=== PATIENT | male | born 1945 | race Caucasian/White ===

== ENCOUNTER 2019-05-01 18:06 | IRF | payer MEDICARE, OTHER, SELFPAY ==
[2019-05-01 18:00] VITALS: PULSE 63; RESP 16; TEMP 36.7; O2SAT 97; BMI 34.5
--- NOTE | 2019-05-01 18:41 | ADMGEN ---
This patient, Jonathon Schaefer, was admitted to [facility] Room 221-01. Patient/family oriented to hospital policies and general routines including ID bracelet, bed and alarms, visiting hours, pain management, procedures, bathroom and other care routines, personal items, smoking policy, room service/diet, and visiting hours. Valuables list has been completed. Information on how to activate the Rapid Response Team has been discussed. Patient/Family are encouraged to report perceived risks to care and to ask questions if they do not understand what they are told or what they should do.
[2019-05-01 19:04] VITALS: PULSE 63; RESP 16; O2SAT 97
[2019-05-01 19:15] VITALS: BP 158/77
[2019-05-01] MEDS: metFORMIN HCL 500 MG TABLET 1000 MG PO (20:06)
[2019-05-01 20:09] LABS: Glucose Point of Care 202 (65-105)
[2019-05-01 21:23] VITALS: BP 100/60; PULSE 60; RESP 20; TEMP 36.8; O2SAT 97
[2019-05-02 05:03] LABS: Basophils Percent Auto 0.5 % (0.2-1.2); Eosinophils Absolute Auto 0.3 K/mm3 (0-0.3); Eosinophils Percent Auto 3.3 % (0-4.4); Hematocrit 35.6 % (42.0-52.0); Hemoglobin 10.9 g/dL (14.0-18.0); Immature Granulocyte Absolute 0.06 K/mm3 (0.00-0.031); Immature Granulocyte Percent A 0.7 % (0-0.5); Lymphocytes Absolute Auto 1.82 K/mm3 (0.9-3.2); Lymphocytes Percent Auto 22.5 % (18.3-44.2); Mean Corpuscular HGB Conc 30.6 g/dl (32-36); Mean Corpuscular Hemoglobin 25.9 pg (26-34); Mean Corpuscular Volume 84.6 fl (80-100); Mean Platelet Volume 10.8 fl (7.4-10.4); Monocytes Absolute Auto 0.8 K/mm3 (0.1-0.6); Monocytes Percent Auto 9.3 % (2.6-8.5); Neutrophils Absolute Auto 5.2 K/mm3 (1.3-6.7); Neutrophils Percent Auto 63.7 % (45.5-73.1); Platelet Count Result 189 k/mm3 (150-375); Red Blood Count 4.21 M/mm3 (4.6-6.20); White Blood Count 8.1 K/mm3 (4.5-10.0)
[2019-05-02 05:10] LABS: Hemoglobin A1C 8.9 % (<5.7)
[2019-05-02 05:11] LABS: Blood Urea Nitrogen 20 mg/dL (9-20); Calcium 8.4 mg/dL (8.4-10.2); Carbon Dioxide 26 mmol/L (22-30); Chloride 110 mmol/L (98-107); Cholesterol 141 mg/dL (0-200); Estimated CRCL calculation 74 ml/min; Estimated Glomerular Filt Rate > 60; Glucose 91 mg/dL (75-110); HDL Direct 36 mg/dL; Potassium 3.7 mmol/L (3.4-5.0); Sodium 139 mmol/L (137-145); Triglycerides 80 mg/dL (<150)
[2019-05-02 05:22] LABS: LDL Cholesterol Direct 88 mg/dL
[2019-05-02 06:52] LABS: Glucose Point of Care 87 (65-105)
[2019-05-02 07:02] VITALS: BP 165/58; PULSE 58; RESP 16; TEMP 36.8; O2SAT 93
[2019-05-02 08:23] VITALS: PULSE 60
[2019-05-02] MEDS: FINASTERIDE 5 MG TABLET PO (08:23)
[2019-05-02] MEDS: LOSARTAN POTASSIUM 50 MG TABLET PO (08:23)
[2019-05-02] MEDS: EZETIMIBE 10 MG TABLET PO (08:23)
[2019-05-02] MEDS: TAMSULOSIN HCL 0.4 MG CAPSULE PO (08:23)
[2019-05-02] MEDS: ASPIRIN 81 MG CHEWABLE TABLET PO (08:23)
[2019-05-02] MEDS: CLOPIDOGREL BISULFATE 75 MG TABLET PO (08:23)
[2019-05-02] MEDS: INDAPAMIDE 2.5 MG TABLET PO (08:23)
[2019-05-02] MEDS: METOPROLOL SUCCINATE EXT REL 50 MG TABCR PO (08:23)
[2019-05-02] MEDS: ATORVASTATIN 40 MG TABLET PO (08:23)
[2019-05-02] MEDS: metFORMIN HCL 500 MG TABLET 1000 MG PO ×2 (08:23→20:25)
--- NOTE | 2019-05-02 09:56 | PC.NURSE ---
pt refused lantus this morning. pt stated he usually takes it at HS as well as metformin. spoke with Dr Ernst and he was okay with changing the times of these medications. Also spoke with patient regarding jardiance. pt states he was not on that medication before and has none at home. spoke with Dr Ernst regarding jardiance as well with okay to discontinue at this time. will continue to monitor.
--- NOTE | 2019-05-02 10:00 | WPDREHABHP ---
H&P: HPI History of Present Illness Chief complaint: CVA Narrative: Jonathon Schaefer is a 74 year old male HISTORY OF PRESENT ILLNESS: The patient's primary rehab impairment category is stroke The etiologic diagnosis is left-sided hemiparesis I saw this patient [id number] on May 02, 2019 at 10:00 a.m. The patient is a 74-year-old right-handed white male with a past medical history significant for stroke about 15 years ago, aortic stenosis (is status post valve replacement close), ventricular tachycardia (status post dual-chamber ICD), diabetes mellitus, coronary artery disease, hypertension, and hyperlipidemia who presented to [facility] in [place] on April 29, 2019 with weakness and slurring of the speech. Patient reported walking to the bathroom when he felt weak and dropped to his knees and could not get up. His noticed slurring of the speech and was unable to help him up so he called EMS. EMS reported mild confusion and difficulty answering questions. Patient reported of some approximately 4 falls in the past week without acute injuries due to weakness and imbalance. He reported a mild posterior headache near his neck that is and achy and constant. Neurology was consulted. CT is negative for acute intracranial abnormalities. MRI could not be performed due to AICD. he was continued on aspirin Plavix and atorvastatin. Hospitalization significant for hypertensive urgency, leukocytosis (likely reactive ), acute kidney injury (baseline creatinine around 1), and hyperglycemia (controlled on insulin regiment ). Physical examination continues to reveal left-sided hemiparesis decreased gross motor control, impaired balance and decreased safety awareness. The patient has passed bedside swallowing test and will be on a regular consistency diet with thin liquids. Patient is discharged to rehab on Lovenox for DVT prophylaxis however considering the minimum deficit he may not need the Lovenox for long Therapy was initiated at the acute care facility and the patient transferred to us from [facility] on May 01, 2019 FALLS OR SURGERIES: The patient has had no major surgeries in the 100 days prior to admission. They had falls in the past year. They had falls with injury in the past year. PAST MEDICAL HISTORY: aortic valve stenosis, AV block, coronary artery disease, diabetes mellitus, essential hypertension, hyperlipidemia, tachycardia, pacemaker implantation PAST SURGICAL HISTORY: cataract extraction 2016, pacemaker placement November 07, 2014, aortic valve replacement October 06, 2017 with a Medtronic Mozic Number 25 millimeter valve SOCIAL HISTORY: patient lives with his in a 1 level home with the basement. His hobbies are trains and he has used to going to the basement. There are for concrete steps to enter the home. He was completely independent prior only uses single-point cane when there was no eye sore significant drained. He does laundry and dishes at baseline. He and his are both retired so his is available to assist following rehabilitation if needed. He is a former smoker no alcohol or drug use FAMILY HISTORY: mother with heart disease, hypertension, diabetes, cancer. Father with coronary artery bypass graft congestive heart failure brother with heart disease and congestive heart failure PRIOR LEVEL OF FUNCTION: Eating was INDEPENDENT Oral Care was INDEPENDENT Toileting Hygiene was INDEPENDENT Shower/Bathing was INDEPENDENT Upper Body Dressing was INDEPENDENT Lower Body Dressing was INDEPENDENT Donning/[place] Footwear was INDEPENDENT Rolling Left and Right was INDEPENDENT Sit to Lying was INDEPENDENT Lying to Sitting was INDEPENDENT Sit to Stand was INDEPENDENT Bed to Chair Transfers was INDEPENDENT Toilet Transfers was INDEPENDENT Walking was INDEPENDENT 990 and feet with NO DEVICE Wheelchair Mobility was NOT APPLICABLE PRIOR TO ADMISSION Stairs
[2019-05-02 13:14] VITALS: BMI 34.5
[2019-05-02 14:00] VITALS: BP 141/69; PULSE 72; RESP 18; TEMP 36.6; O2SAT 96
--- NOTE | 2019-05-02 16:37 | RPD ---
INDIVIDUALIZED PLAN OF CARE FOR Jonathon Schaefer Brief Synthesis of Pre-Admission Screen, Post-Admission Evaluation and Therapy Evaluations: The patient presents to rehab with a left cerebrovascular accident. Comorbidities include Hypertension, hyperlipidemia, uncontrolled diabetes mellitus, weakness, acute kidney injury, leukocytosis, normocytic anemia, aortic stenosis, coronary artery disease, hypertensive urgency. Deficits include:ADLs, Balance, Endurance, Family Training/Education, Mobility, ROM, Safety, Strength, and Transfers Insulation Inspector/Case Management for: Discharge Planning and Patient/Family Counseling Physical Therapy: 5 days per week for 90 minutes. Treatments may include: Therapeutic Exercise, Gait Training, Neuromuscular Re-education, Transfer Training, Community Reintegration, Bed Mobility, Patient/Family Education, Wheelchair Mobility Group Therapy/Concurrent Therapy Rationales: -Improve attention span during functional activities in a distracted environment. -Enhance problem solving and/or adequate judgment skills during functional activities in a distracted environment. -Promote increased safety awareness in a distracted environment to reduce fall risk with functional tasks, transfers, and ambulation to allow a more safe, self-sufficient return to the home environment. -Improve dynamic balance skills to promote safety and independence with functional activities in a distracted environment for maximum gain. Occupational Therapy: 5 days per week for 90 minutes. Treatments may include: Therapeutic Exercise, Therapeutic Activity, Cognitive Training, Self-Care Transfer Training, Community Reintegration, Home Management, Patient/Family Education, Wheelchair Mobility Training, Energy Conservation Training Group Therapy/Concurrent Therapy Rationales: -Allow therapist to observe and teach generalization and carry-over of skills learned in individual therapy. -Enhance problem solving and sequencing skills during therapeutic activities in a distracted environment. -Promote increased safety awareness in a realistic setting to reduce fall risk with functional tasks due to visual and verbal distractions. -Increase functional level with ADLs, ADL transfers and use of adaptive equipment through therapeutic activities with others while promoting safety to allow a more safe, self-sufficient return home. Medical Prognosis: Good Anticipated Length of Stay: 7 days Rehab Goals: Eating Goal: 06-Independent Oral Hygiene Goal: 06-Independent Toileting Hygiene Goal: 06-Independent Shower/Bathe Self Goal: 06-Independent Upper Body Dressing Goal: 06-Independent Lower Body Dressing Goal: 06-Independent Putting On/Taking Off Footwear Goal: 06-Independent Rolling Left and Right Goal: 06-Independent Sit to Lying Goal: 06-Independent Lying to Sitting on Side of Bed Goal: 06-Independent Sit to Stand Goal: 06-Independent Chair/Uob-mq-Asyze Transfer Goal: 06-Independent Toilet Transfer Goal: 06-Independent Car Transfer Goal: 06-Independent Walk 10' Goal: 06-Independent Walk 50' with Two Turns Goal: 06-Independent Walk 150' Goal: 06-Independent Walk 10' on Uneven Surface Goal: 06-Independent 1 Step (Curb) Goal: 06-Independent 4 Steps Goal: 06-Independent 12 Steps Goal Score: 06-Independent Picking Up Object Goal: 06-Independent Wheel 50' with Two Turns Score: 09-Not Applicable Wheel 150' Goal: 09-Not Applicable Anticipated discharge destination: Home
[2019-05-02 20:24] LABS: Glucose Point of Care 183 (65-105)
[2019-05-02] MEDS: INSULIN GLARGINE (*BKC) 100 UNITS/ML 70 UNITS SUB-Q (20:25)
[2019-05-02 22:00] VITALS: BP 153/71; PULSE 70; RESP 20; TEMP 37.1; O2SAT 97
[2019-05-03 06:00] VITALS: BP 161/78; PULSE 71; RESP 18; TEMP 36.6; O2SAT 91
[2019-05-03 07:10] LABS: Glucose Point of Care 76 (65-105)
[2019-05-03 08:33] VITALS: PULSE 71
[2019-05-03] MEDS: metFORMIN HCL 500 MG TABLET 1000 MG PO ×2 (08:33→21:26)
[2019-05-03] MEDS: TAMSULOSIN HCL 0.4 MG CAPSULE PO (08:33)
[2019-05-03] MEDS: CLOPIDOGREL BISULFATE 75 MG TABLET PO (08:33)
[2019-05-03] MEDS: ATORVASTATIN 40 MG TABLET PO (08:33)
[2019-05-03] MEDS: ASPIRIN 81 MG CHEWABLE TABLET PO (08:33)
[2019-05-03] MEDS: LOSARTAN POTASSIUM 50 MG TABLET PO (08:33)
[2019-05-03] MEDS: EZETIMIBE 10 MG TABLET PO (08:33)
[2019-05-03] MEDS: FINASTERIDE 5 MG TABLET PO (08:33)
[2019-05-03] MEDS: METOPROLOL SUCCINATE EXT REL 50 MG TABCR PO (08:33)
[2019-05-03] MEDS: INDAPAMIDE 2.5 MG TABLET PO (08:33)
--- NOTE | 2019-05-03 12:08 | WPDNEURORHBP ---
Subjective Date/time seen: 05/03/19 12:08 Interval history: this 74-year-old gentleman is here after having had stroke affecting the right cerebral hemisphere with the left-sided hemiparesis superimposed on a previous stroke several years ago he is doing very well denies any headache nausea vomiting chest pain shortness of breath the patient has multiple cardiac issues including aortic valve replacement and other medical problems mentioned in my HNP However overall is doing well except 1 complain of 1 urinary incontinence this morning when he was ready to go however the nurse aide was relatively slow in getting to him and he became incontinent he did have the urge did not have any presyncope incidence we will watch Review of Systems Review of Systems: All systems reviewed & are unremarkable except as noted in HPI and below Functional Status Ambulation Ability Ability to Ambulate 10 Feet: Contact Guard Ability to Ambulate 50 Feet With 2 Turns: Contact Guard Ability to Ambulate 150 Feet: Contact Guard Ambulation Assistive Devices: Cane and Cane, Large Base Quad Transfers Ability Ability to Transfer In/Out of Chair: Standby Assistance Exam Const: General: comfortable and no acute distress HENMT: General nose exam: Normal nares present Mouth: Yes moist mucous membranes Eyes: General: appearance normal, both eyes and all related structures Neck: Neck: supple and no JVD Resp: Effort & Inspection: normal respiratory effort Auscultation: clear to auscultation bilaterally Cardio: Rate: regular rate Rhythm: regular rhythm GI: GI Palp: Yes Soft to palpation Auscultation: normal bowel sounds Skin: General skin exam: normal color and no rashes or lesions noted Neuro: Other: patient is awake and alert of only to time place and person is speech language functions are normal cranial examination is normal left-sided hemiparesis is improving his overall doing quite well Extrem: General: normal to inspection Psych: Mental Status: mental status grossly normal Objective Data Vital Signs Vital Signs: Vital Signs - 24 hr 05/02/19 14:00 05/02/19 22:00 05/03/19 06:00 Temperature 36.6 C 37.1 C 36.6 C Pulse Rate 72 70 71 Respiratory Rate 18 20 18 Blood Pressure 141/69 H 153/71 H 161/78 H Pulse Oximetry 96 97 91 05/03/19 08:33 Temperature Pulse Rate 71 Respiratory Rate Blood Pressure Pulse Oximetry Intake/Output Intake/Output: Intake & Output 04/30/19 05/01/19 05/02/19 05/03/19 23:59 23:59 23:59 23:59 Intake Total 240 1320 240 Balance 240 1320 240 Meds/Results Medications: Active Medications Generic Name Dose Route Start Last Admin Trade Name Freq PRN Reason Stop Dose Admin Aspirin 81 mg 05/02/19 09:00 05/03/19 08:33 Aspirin Chewable PO 81 mg DAILY CHARU Administration Atorvastatin Calcium 40 mg 05/02/19 09:00 05/03/19 08:33 Lipitor PO 40 mg DAILY CHARU Administration Clopidogrel Bisulfate 75 mg 05/02/19 09:00 05/03/19 08:33 Plavix PO 75 mg DAILY CHARU Administration Dextrose 12.5 gm 05/01/19 18:47 Dextrose 50% Syringe IV PUSH PRN PRN Hypoglycemia Protocol Ezetimibe 10 mg 05/02/19 09:00 05/03/19 08:33 Zetia PO 10 mg DAILY CHARU Administration Finasteride 5 mg 05/02/19 09:00 05/03/19 08:33 Proscar PO 5 mg DAILY CHARU Administration Glucagon 1 mg 05/01/19 18:47 Glucagon For Inj IM PRN PRN Hypoglycemia Protocol Glucose 15 gm 05/01/19 18:47 Glutose 15 PO PRN PRN Hypoglycemia Protocol Dextrose 1,000 mls @ 100 mls/hr 05/01/19 18:47 Dextrose 5% 1,000 Ml IVPB PRN PRN Hypoglycemia Protocol Indapamide 2.5 mg 05/02/19 09:00 05/03/19 08:33 Lozol PO 2.5 mg DAILY CHARU Administration Insulin Glargine 70 units 05/02/19 21:00 05/02/19 20:25 Lantus SUB-Q 70 units HS CHARU Administration Losartan Potassium 50 mg 05/02/19 09:00 05/03/19 08:33 [place]
[2019-05-03 14:00] VITALS: BP 147/61; PULSE 65; RESP 18; TEMP 36.4; O2SAT 92
[2019-05-03 20:30] VITALS: PULSE 76; RESP 20; O2SAT 99
[2019-05-03] MEDS: INSULIN GLARGINE (*BKC) 100 UNITS/ML 70 UNITS SUB-Q (21:25)
[2019-05-03 22:00] VITALS: BP 158/64; PULSE 76; RESP 20; TEMP 36.2; O2SAT 99
[2019-05-03 22:25] LABS: Glucose Point of Care 314 (65-105)
[2019-05-04 06:00] VITALS: BP 146/70; PULSE 80; RESP 20; TEMP 36.4; O2SAT 99
[2019-05-04 06:31] LABS: Glucose Point of Care 129 (65-105)
[2019-05-04] MEDS: CLOPIDOGREL BISULFATE 75 MG TABLET PO (09:23)
[2019-05-04] MEDS: ATORVASTATIN 40 MG TABLET PO (09:23)
[2019-05-04] MEDS: EZETIMIBE 10 MG TABLET PO (09:23)
[2019-05-04] MEDS: FINASTERIDE 5 MG TABLET PO (09:23)
[2019-05-04 09:24] VITALS: PULSE 80
[2019-05-04] MEDS: metFORMIN HCL 500 MG TABLET 1000 MG PO ×2 (09:24→21:16)
[2019-05-04] MEDS: ASPIRIN 81 MG CHEWABLE TABLET PO (09:24)
[2019-05-04] MEDS: METOPROLOL SUCCINATE EXT REL 50 MG TABCR PO (09:24)
[2019-05-04] MEDS: LOSARTAN POTASSIUM 50 MG TABLET PO (09:24)
[2019-05-04] MEDS: INDAPAMIDE 2.5 MG TABLET PO (09:24)
[2019-05-04] MEDS: TAMSULOSIN HCL 0.4 MG CAPSULE PO (09:24)
[2019-05-04 14:00] VITALS: BP 147/70; PULSE 67; RESP 18; TEMP 36.4; O2SAT 92
--- NOTE | 2019-05-04 15:29 | WPDNEURORHBP ---
Subjective Date/time seen: 05/04/19 15:29 Interval history: this pleasant 74-year-old gentleman is here after having had a stroke affecting the left side of the body from which he is improving is quite happy with the care he is receiving and making progress every day denies any other neurological symptoms or any new neurological symptoms or signs denies any headache nausea vomiting chest pain shortness of breath fever chills or sore throat Review of Systems Review of Systems: All systems reviewed & are unremarkable except as noted in HPI and below Functional Status Ambulation Ability Ability to Ambulate 10 Feet: Contact Guard Ability to Ambulate 50 Feet With 2 Turns: Contact Guard Ability to Ambulate 150 Feet: Contact Guard Ambulation Assistive Devices: Cane Transfers Ability Ability to Transfer In/Out of Chair: Standby Assistance Exam Const: General: comfortable and no acute distress HENMT: General nose exam: Normal nares present Mouth: Yes moist mucous membranes Eyes: General: appearance normal, both eyes and all related structures Neck: Neck: supple and no JVD Resp: Effort & Inspection: normal respiratory effort Auscultation: clear to auscultation bilaterally Cardio: Rate: regular rate Rhythm: regular rhythm GI: GI Palp: Yes Soft to palpation Auscultation: normal bowel sounds Skin: General skin exam: normal color and no rashes or lesions noted Neuro: Other: patient is awake alert well oriented time place and person is speech language functions are normal cranial exam shows normal motor weakness on the left side is improving he is doing remarkably well and will probably be discharged soon Extrem: General: normal to inspection Psych: Mental Status: mental status grossly normal Objective Data Vital Signs Vital Signs: Vital Signs - 24 hr 05/03/19 20:30 05/03/19 22:00 05/04/19 06:00 Temperature 36.2 C L 36.4 C Pulse Rate 76 76 80 Respiratory Rate 20 20 20 Blood Pressure 158/64 H 146/70 H Pulse Oximetry 99 99 99 05/04/19 09:24 Temperature Pulse Rate 80 Respiratory Rate Blood Pressure Pulse Oximetry Intake/Output Intake/Output: Intake & Output 05/01/19 05/02/19 05/03/19 05/04/19 23:59 23:59 23:59 23:59 Intake Total 240 1320 720 720 Balance 240 1320 720 720 Meds/Results Medications: Active Medications Generic Name Dose Route Start Last Admin Trade Name Freq PRN Reason Stop Dose Admin Aspirin 81 mg 05/02/19 09:00 05/04/19 09:24 Aspirin Chewable PO 81 mg DAILY CHARU Administration Atorvastatin Calcium 40 mg 05/02/19 09:00 05/04/19 09:23 Lipitor PO 40 mg DAILY CHARU Administration Clopidogrel Bisulfate 75 mg 05/02/19 09:00 05/04/19 09:23 Plavix PO 75 mg DAILY CHARU Administration Dextrose 12.5 gm 05/01/19 18:47 Dextrose 50% Syringe IV PUSH PRN PRN Hypoglycemia Protocol Ezetimibe 10 mg 05/02/19 09:00 05/04/19 09:23 Zetia PO 10 mg DAILY CHARU Administration Finasteride 5 mg 05/02/19 09:00 05/04/19 09:23 Proscar PO 5 mg DAILY CHARU Administration Glucagon 1 mg 05/01/19 18:47 Glucagon For Inj IM PRN PRN Hypoglycemia Protocol Glucose 15 gm 05/01/19 18:47 Glutose 15 PO PRN PRN Hypoglycemia Protocol Dextrose 1,000 mls @ 100 mls/hr 05/01/19 18:47 Dextrose 5% 1,000 Ml IVPB PRN PRN Hypoglycemia Protocol Indapamide 2.5 mg 05/02/19 09:00 05/04/19 09:24 Lozol PO 2.5 mg DAILY CHARU Administration Insulin Glargine 70 units 05/02/19 21:00 05/03/19 21:25 Lantus SUB-Q 70 units HS CHARU Administration Losartan Potassium 50 mg 05/02/19 09:00 05/04/19 09:24 Cozaar PO 50 mg DAILY CHARU Administration Metformin HCl 1,000 mg 05/02/19 21:00 05/04/19 09:24 Glucophage PO 1,000 mg Q12HR CHARU Administration Metoprolol Succinate 50 mg 05/02/19 09:00 05/04/19 09:24 Toprol Xl PO 50 mg DAILY CHARU Administration
[2019-05-04 16:40] VITALS: PULSE 66; RESP 18; O2SAT 92
[2019-05-04] MEDS: INSULIN GLARGINE (*BKC) 100 UNITS/ML 70 UNITS SUB-Q (21:16)
[2019-05-04 21:24] LABS: Glucose Point of Care 239 (65-105)
[2019-05-04 22:00] VITALS: BP 152/79; PULSE 71; RESP 19; TEMP 36.5; O2SAT 98
[2019-05-05 06:00] VITALS: BP 187/79; PULSE 65; RESP 18; TEMP 36.2; O2SAT 97
[2019-05-05 06:57] LABS: Glucose Point of Care 113 (65-105)
[2019-05-05] MEDS: ASPIRIN 81 MG CHEWABLE TABLET PO (09:00)
[2019-05-05] MEDS: EZETIMIBE 10 MG TABLET PO (09:01)
[2019-05-05] MEDS: INDAPAMIDE 2.5 MG TABLET PO (09:01)
[2019-05-05] MEDS: ATORVASTATIN 40 MG TABLET PO (09:01)
[2019-05-05] MEDS: CLOPIDOGREL BISULFATE 75 MG TABLET PO (09:01)
[2019-05-05] MEDS: FINASTERIDE 5 MG TABLET PO (09:01)
[2019-05-05 09:02] VITALS: PULSE 65
[2019-05-05] MEDS: metFORMIN HCL 500 MG TABLET 1000 MG PO ×2 (09:02→20:27)
[2019-05-05] MEDS: METOPROLOL SUCCINATE EXT REL 50 MG TABCR PO (09:02)
[2019-05-05] MEDS: TAMSULOSIN HCL 0.4 MG CAPSULE PO (09:02)
[2019-05-05] MEDS: polyethylene glycoL 3350 17 GM POWD.PACK PO (09:02)
[2019-05-05] MEDS: LOSARTAN POTASSIUM 50 MG TABLET PO (09:02)
[2019-05-05 14:00] VITALS: BP 118/59; PULSE 70; RESP 20; TEMP 36.1; O2SAT 99
--- NOTE | 2019-05-05 15:39 | WPDNEURORHBP ---
Subjective Date/time seen: 05/05/19 15:39 Interval history: on this 74-year-old gentleman is here after having had a stroke which left him with left hemiparesis from which he has improving quite well denies any headache nausea vomiting chest pain shortness of breath fever chills or sore throat his very happy with the care and moving forward and planning to be discharged next week Review of Systems Review of Systems: All systems reviewed & are unremarkable except as noted in HPI and below Functional Status Ambulation Ability Ability to Ambulate 10 Feet: Standby Assistance Ability to Ambulate 50 Feet With 2 Turns: Standby Assistance Ability to Ambulate 150 Feet: Standby Assistance Ambulation Assistive Devices: Cane Transfers Ability Ability to Transfer In/Out of Chair: Standby Assistance Exam Const: General: comfortable and no acute distress HENMT: General nose exam: Normal nares present Mouth: Yes moist mucous membranes Eyes: General: appearance normal, both eyes and all related structures Neck: Neck: supple and no JVD Resp: Effort & Inspection: normal respiratory effort Auscultation: clear to auscultation bilaterally Cardio: Rate: regular rate Rhythm: regular rhythm GI: GI Palp: Yes Soft to palpation Auscultation: normal bowel sounds Skin: General skin exam: normal color and no rashes or lesions noted Neuro: Other: patient is awake and alert well oriented time present person has a normal speech and language functions normal cranial nerve examination except subtle left-sided facial weakness and mild left-sided hemiparesis with which he is improving quite a bit and is able to perform the activities of daily living much better than when he came in Extrem: General: normal to inspection Psych: Mental Status: mental status grossly normal Objective Data Vital Signs Vital Signs: Vital Signs - 24 hr 05/04/19 16:40 05/04/19 22:00 05/05/19 06:00 Temperature 36.5 C 36.2 C L Pulse Rate 66 71 65 Respiratory Rate 18 19 18 Blood Pressure 152/79 H 187/79 H Pulse Oximetry 92 98 97 05/05/19 09:02 05/05/19 14:00 Temperature 36.1 C L Pulse Rate 65 70 Respiratory Rate 20 Blood Pressure 118/59 L Pulse Oximetry 99 Intake/Output Intake/Output: Intake & Output 05/02/19 05/03/19 05/04/19 05/05/19 23:59 23:59 23:59 23:59 Intake Total 3793 335 2723 600 Balance 1189 413 8797 600 Meds/Results Medications: Active Medications Generic Name Dose Route Start Last Admin Trade Name Freq PRN Reason Stop Dose Admin Aspirin 81 mg 05/02/19 09:00 05/05/19 09:00 Aspirin Chewable PO 81 mg DAILY CHARU Administration Atorvastatin Calcium 40 mg 05/02/19 09:00 05/05/19 09:01 Lipitor PO 40 mg DAILY CHARU Administration Clopidogrel Bisulfate 75 mg 05/02/19 09:00 05/05/19 09:01 Plavix PO 75 mg DAILY CHARU Administration Dextrose 12.5 gm 05/01/19 18:47 Dextrose 50% Syringe IV PUSH PRN PRN Hypoglycemia Protocol Ezetimibe 10 mg 05/02/19 09:00 05/05/19 09:01 Zetia PO 10 mg DAILY CHARU Administration Finasteride 5 mg 05/02/19 09:00 05/05/19 09:01 Proscar PO 5 mg DAILY CHARU Administration Glucagon 1 mg 05/01/19 18:47 Glucagon For Inj IM PRN PRN Hypoglycemia Protocol Glucose 15 gm 05/01/19 18:47 Glutose 15 PO PRN PRN Hypoglycemia Protocol Dextrose 1,000 mls @ 100 mls/hr 05/01/19 18:47 Dextrose 5% 1,000 Ml IVPB PRN PRN Hypoglycemia Protocol Indapamide 2.5 mg 05/02/19 09:00 05/05/19 09:01 Lozol PO 2.5 mg DAILY CHARU Administration Insulin Glargine 70 units 05/02/19 21:00 05/04/19 21:16 Lantus SUB-Q 70 units HS CHARU Administration Losartan Potassium 50 mg 05/02/19 09:00 05/05/19 09:02 Cozaar PO 50 mg DAILY CHARU Administration Metformin HCl 1,000 mg 05/02/19 21:00 05/05/19 09:02 Glucophage PO 1,000 mg Q12HR CHARU Administration Metoprolol Suc
[2019-05-05 17:04] LABS: Glucose Point of Care 229 (65-105)
[2019-05-05] MEDS: INSULIN GLARGINE (*BKC) 100 UNITS/ML 70 UNITS SUB-Q (20:28)
[2019-05-05 20:58] LABS: Glucose Point of Care 207 (65-105)
[2019-05-05 21:16] VITALS: BP 180/74; PULSE 78; RESP 20; TEMP 36.4; O2SAT 97
[2019-05-06 06:00] VITALS: BP 170/83; PULSE 70; RESP 16; TEMP 36.2; O2SAT 94
[2019-05-06 07:02] LABS: Glucose Point of Care 89 (65-105)
[2019-05-06 10:25] VITALS: BP 110/65; PULSE 77
[2019-05-06] MEDS: ASPIRIN 81 MG CHEWABLE TABLET PO (10:26)
[2019-05-06] MEDS: FINASTERIDE 5 MG TABLET PO (10:26)
[2019-05-06] MEDS: ATORVASTATIN 40 MG TABLET PO (10:26)
[2019-05-06] MEDS: TAMSULOSIN HCL 0.4 MG CAPSULE PO (10:26)
[2019-05-06] MEDS: LOSARTAN POTASSIUM 50 MG TABLET PO (10:27)
[2019-05-06] MEDS: INDAPAMIDE 2.5 MG TABLET PO (10:27)
[2019-05-06] MEDS: EZETIMIBE 10 MG TABLET PO (10:27)
[2019-05-06] MEDS: metFORMIN HCL 500 MG TABLET 1000 MG PO ×2 (10:27→21:11)
[2019-05-06] MEDS: METOPROLOL SUCCINATE EXT REL 50 MG TABCR PO (10:28)
[2019-05-06] MEDS: CLOPIDOGREL BISULFATE 75 MG TABLET PO (10:28)
--- NOTE | 2019-05-06 11:23 | WPDNEURORHBP ---
Subjective Date/time seen: going well05/06/19 11:23 Review of Systems Review of Systems: All systems reviewed & are unremarkable except as noted in HPI and below Functional Status Ambulation Ability Ability to Ambulate 10 Feet: Standby Assistance Ability to Ambulate 50 Feet With 2 Turns: Standby Assistance Ability to Ambulate 150 Feet: Standby Assistance Ambulation Assistive Devices: Cane Transfers Ability Ability to Transfer In/Out of Chair: Standby Assistance Exam Const: General: cooperative, comfortable and no acute distress Nutritional Appearance: average body habitus Limitations: no limitations HENMT: Head: normocephalic Mouth: Yes Normal oral and palatal mucosa present Eyes: General: appearance normal, both eyes and all related structures Neck: Neck: full ROM and no lymphadenopathy Resp: Effort & Inspection: normal respiratory effort and able to speak in complete sentences Auscultation: clear to auscultation bilaterally Cardio: Rate: regular rate Rhythm: regular rhythm GI: Auscultation: normal bowel sounds Skin: General skin exam: no rashes or lesions noted Neuro: General: patient oriented x3 and moves all extremities Cranial nerves: Yes Equal, round and reactive pupils present, Yes Bilaterally intact EOM present, Yes Nystagmus not present, Yes facial symmetry (mild asymmetry) and Yes Midline tongue present Cognition (Neuro): normal cognition Speech: normal speech Motor exam (neuro): 5/5 motor strength present throughout (mild left linda) Deep tendon reflexes (DTR's): Right triceps reflex intensity grade: 0, Left triceps reflex intensity grade: 1+, Rt Biceps (C5, C6): 0, Left biceps reflex intensity grade: 1+, Right brachioradialis reflex intensity grade: 0, Left brachioradialis reflex intensity grade: 1+, Right patellar reflex intensity grade: 0, Left patellar reflex intensity grade: 1+, Right ankle reflex intensity grade: 0 and Left ankle reflex intensity grade: 1+ Plantar Reflex Responses: downgoing: right and upgoing (positive Babinski): left Psych: Appearance: grossly normal Objective Data Vital Signs Vital Signs: Vital Signs - 24 hr 05/05/19 14:00 05/05/19 21:16 05/06/19 06:00 Temperature 36.1 C L 36.4 C 36.2 C L Pulse Rate 70 78 70 Respiratory Rate 20 20 16 Blood Pressure 118/59 L 180/74 H 170/83 H Pulse Oximetry 99 97 94 05/06/19 10:25 Temperature Pulse Rate 77 Respiratory Rate Blood Pressure 110/65 Pulse Oximetry Intake/Output Intake/Output: Intake & Output 05/03/19 05/04/19 05/05/19 05/06/19 23:59 23:59 23:59 23:59 Intake Total 720 1200 1080 Balance 720 1200 1080 Meds/Results Medications: Active Medications Generic Name Dose Route Start Last Admin Trade Name Freq PRN Reason Stop Dose Admin Aspirin 81 mg 05/02/19 09:00 05/06/19 10:26 Aspirin Chewable PO 81 mg DAILY CHARU Administration Atorvastatin Calcium 40 mg 05/02/19 09:00 05/06/19 10:26 Lipitor PO 40 mg DAILY CHARU Administration Clopidogrel Bisulfate 75 mg 05/02/19 09:00 05/06/19 10:28 Plavix PO 75 mg DAILY CHARU Administration Dextrose 12.5 gm 05/01/19 18:47 Dextrose 50% Syringe IV PUSH PRN PRN Hypoglycemia Protocol Ezetimibe 10 mg 05/02/19 09:00 05/06/19 10:27 Zetia PO 10 mg DAILY CHARU Administration Finasteride 5 mg 05/02/19 09:00 05/06/19 10:26 Proscar PO 5 mg DAILY CHARU Administration Glucagon 1 mg 05/01/19 18:47 Glucagon For Inj IM PRN PRN Hypoglycemia Protocol Glucose 15 gm 05/01/19 18:47 Glutose 15 PO PRN PRN Hypoglycemia Protocol Dextrose 1,000 mls @ 100 mls/hr 05/01/19 18:47 Dextrose 5% 1,000 Ml IVPB PRN PRN Hypoglycemia Protocol Indapamide 2.5 mg 05/02/19 09:00 05/06/19 10:27 Lozol PO 2.5 mg DAILY CHARU Administration Insulin Glargine 70 units 05/02/19 21:00 05/05/19 20:28 Lantus SUB-Q 70 units HS CHARU Administration [place]
[2019-05-06 14:00] VITALS: BP 116/78; PULSE 76; RESP 18; TEMP 36.3; O2SAT 95
[2019-05-06 17:12] LABS: Glucose Point of Care 95 (65-105)
[2019-05-06] MEDS: INSULIN GLARGINE (*BKC) 100 UNITS/ML 70 UNITS SUB-Q (21:08)
[2019-05-06 21:24] LABS: Glucose Point of Care 183 (65-105)
[2019-05-06 22:00] VITALS: BP 169/71; PULSE 68; RESP 19; TEMP 36.2; O2SAT 99
[2019-05-07 06:00] VITALS: BP 183/81; PULSE 75; RESP 19; TEMP 36.2; O2SAT 96
[2019-05-07 06:53] LABS: Glucose Point of Care 72 (65-105)
[2019-05-07] MEDS: FINASTERIDE 5 MG TABLET PO (09:21)
[2019-05-07] MEDS: EZETIMIBE 10 MG TABLET PO (09:21)
[2019-05-07] MEDS: ATORVASTATIN 40 MG TABLET PO (09:21)
[2019-05-07] MEDS: INDAPAMIDE 2.5 MG TABLET PO (09:21)
[2019-05-07] MEDS: ASPIRIN 81 MG CHEWABLE TABLET PO (09:21)
[2019-05-07] MEDS: CLOPIDOGREL BISULFATE 75 MG TABLET PO (09:21)
[2019-05-07 09:22] VITALS: PULSE 75
[2019-05-07] MEDS: METOPROLOL SUCCINATE EXT REL 50 MG TABCR PO (09:22)
[2019-05-07] MEDS: polyethylene glycoL 3350 17 GM POWD.PACK PO (09:22)
[2019-05-07] MEDS: TAMSULOSIN HCL 0.4 MG CAPSULE PO (09:22)
[2019-05-07] MEDS: metFORMIN HCL 500 MG TABLET 1000 MG PO ×2 (09:22→20:26)
[2019-05-07] MEDS: LOSARTAN POTASSIUM 50 MG TABLET PO (09:22)
--- NOTE | 2019-05-07 10:36 | WPDNEURORHBP ---
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 from which he has continues to improve his quite happy with the care apart from some balance issues is doing fairly well denies any headache nausea vomiting chest pain shortness of breath he does have a neurologist in [facility] with whom he is going to follow up no diarrhea vomiting fever chills sore throat Functional Status Ambulation Ability Ability to Ambulate 10 Feet: Standby Assistance Ability to Ambulate 50 Feet With 2 Turns: Standby Assistance Ability to Ambulate 150 Feet: Standby Assistance Ambulation Assistive Devices: Cane Transfers Ability Ability to Transfer In/Out of Chair: Contact Guard Exam Const: General: comfortable and no acute distress HENMT: General nose exam: Normal nares present Mouth: Yes moist mucous membranes Eyes: General: appearance normal, both eyes and all related structures Neck: Neck: supple and no JVD Resp: Effort & Inspection: normal respiratory effort Auscultation: clear to auscultation bilaterally Cardio: Rate: regular rate Rhythm: regular rhythm GI: GI Palp: Yes Soft to palpation Auscultation: normal bowel sounds Skin: General skin exam: normal color and no rashes or lesions noted Neuro: Other: patient is awake alert willing to time place and person has normal speech and language function a subtle left facial weakness and mild left-sided hemiparesis from which he is recuperating quite well and doing very well in the rehab Extrem: General: normal to inspection Psych: Mental Status: mental status grossly normal Objective Data Vital Signs Vital Signs: Vital Signs - 24 hr 05/06/19 14:00 05/06/19 22:00 05/07/19 06:00 Temperature 36.3 C L 36.2 C L 36.2 C L Pulse Rate 76 68 75 Respiratory Rate 18 19 19 Blood Pressure 116/78 169/71 H 183/81 H Pulse Oximetry 95 99 96 05/07/19 09:22 Temperature Pulse Rate 75 Respiratory Rate Blood Pressure Pulse Oximetry Intake/Output Intake/Output: Intake & Output 05/04/19 05/05/19 05/06/19 05/07/19 23:59 23:59 23:59 23:59 Intake Total 1200 1080 480 240 Balance 1200 1080 480 240 Meds/Results Medications: Active Medications Generic Name Dose Route Start Last Admin Trade Name Freq PRN Reason Stop Dose Admin Aspirin 81 mg 05/02/19 09:00 05/07/19 09:21 Aspirin Chewable PO 81 mg DAILY [facility]U Administration Atorvastatin Calcium 40 mg 05/02/19 09:00 05/07/19 09:21 Lipitor PO 40 mg DAILY [facility] Administration Clopidogrel Bisulfate 75 mg 05/02/19 09:00 05/07/19 09:21 Plavix PO 75 mg DAILY [facility]U Administration Dextrose 12.5 gm 05/01/19 18:47 Dextrose 50% Syringe IV PUSH PRN PRN Hypoglycemia Protocol Ezetimibe 10 mg 05/02/19 09:00 05/07/19 09:21 Zetia PO 10 mg DAILY [facility]U Administration Finasteride 5 mg 05/02/19 09:00 05/07/19 09:21 Proscar PO 5 mg DAILY [facility] Administration Glucagon 1 mg 05/01/19 18:47 Glucagon For Inj IM PRN PRN Hypoglycemia Protocol Glucose 15 gm 05/01/19 18:47 Glutose 15 PO PRN PRN Hypoglycemia Protocol Dextrose 1,000 mls @ 100 mls/hr 05/01/19 18:47 Dextrose 5% 1,000 Ml IVPB PRN PRN Hypoglycemia Protocol Indapamide 2.5 mg 05/02/19 09:00 05/07/19 09:21 Lozol PO 2.5 mg DAILY [facility]U Administration Insulin Glargine 70 units 05/02/19 21:00 05/06/19 21:08 Lantus SUB-Q 70 units HS [facility]U Administration Losartan Potassium 50 mg 05/02/19 09:00 05/07/19 09:22 Cozaar PO 50 mg DAILY [facility] Administration Metformin HCl 1,000 mg 05/02/19 21:00 05/07/19 09:22 Glucophage PO 1,000 mg Q12HR [facility]U Administration Metoprolol Succinate 50 mg 05/02/19 09:00 05/07/19 09:22 Toprol Xl PO 50 mg DAILY [facility]U Administration Polyethylene Glycol 17 gm 05/05/19 09:00 05/07/19 09:22
[2019-05-07 14:00] VITALS: BP 107/52; PULSE 74; RESP 20; TEMP 36.6; O2SAT 98
[2019-05-07 19:27] LABS: Glucose Point of Care 296 (65-105)
[2019-05-07] MEDS: INSULIN GLARGINE (*BKC) 100 UNITS/ML 70 UNITS SUB-Q (20:26)
[2019-05-07 22:00] VITALS: BP 147/59; PULSE 71; RESP 18; TEMP 36.8; O2SAT 96
[2019-05-08 06:00] VITALS: BP 180/82; PULSE 76; RESP 19; TEMP 36.2; O2SAT 94
--- NOTE | 2019-05-08 06:18 | PC.NURSE ---
blood sugar 61-orange juice and akash crackers given although patient states that is not low for him
[2019-05-08 06:27] LABS: Glucose Point of Care 61 (65-105)
[2019-05-08] MEDS: INDAPAMIDE 2.5 MG TABLET PO (08:57)
[2019-05-08] MEDS: CLOPIDOGREL BISULFATE 75 MG TABLET PO (08:57)
[2019-05-08] MEDS: ATORVASTATIN 40 MG TABLET PO (08:57)
[2019-05-08] MEDS: FINASTERIDE 5 MG TABLET PO (08:57)
[2019-05-08] MEDS: ASPIRIN 81 MG CHEWABLE TABLET PO (08:57)
[2019-05-08] MEDS: EZETIMIBE 10 MG TABLET PO (08:57)
[2019-05-08 08:58] VITALS: PULSE 80
[2019-05-08] MEDS: metFORMIN HCL 500 MG TABLET 1000 MG PO ×2 (08:58→20:41)
[2019-05-08] MEDS: LOSARTAN POTASSIUM 50 MG TABLET PO (08:58)
[2019-05-08] MEDS: METOPROLOL SUCCINATE EXT REL 50 MG TABCR PO (08:58)
[2019-05-08] MEDS: polyethylene glycoL 3350 17 GM POWD.PACK PO (09:00)
[2019-05-08] MEDS: TAMSULOSIN HCL 0.4 MG CAPSULE PO (09:00)
--- NOTE | 2019-05-08 11:53 | WPDNEURORHBP ---
Subjective Date/time seen: 05/08/19 11:53 Interval history: this 74-year-old gentleman is here due to stroke which has affected his left side he is doing fairly well does not have any specific complaints particularly pertaining to his neurological system he is happy with the care denies any headache nausea vomiting chest pain shortness of breath fever chills or sore throat He did have some soreness and dry area and the right groin and we have put told left at for the same and is more comfortable Review of Systems Review of Systems: All systems reviewed & are unremarkable except as noted in HPI and below Functional Status Ambulation Ability Ability to Ambulate 10 Feet: Standby Assistance Ability to Ambulate 50 Feet With 2 Turns: Standby Assistance Ability to Ambulate 150 Feet: Standby Assistance Ambulation Assistive Devices: Cane Transfers Ability Ability to Transfer In/Out of Chair: Standby Assistance Exam Const: General: comfortable and no acute distress HENMT: General nose exam: Normal nares present Mouth: Yes moist mucous membranes Eyes: General: appearance normal, both eyes and all related structures Neck: Neck: no JVD Resp: Effort & Inspection: normal respiratory effort Auscultation: clear to auscultation bilaterally Cardio: Rate: regular rate Rhythm: regular rhythm GI: GI Palp: Yes Soft to palpation Auscultation: normal bowel sounds Skin: General skin exam: normal color and no rashes or lesions noted Other: possible fungal area in the right groin we are using anti fungal powder Neuro: Other: patient is awake alert well oriented time place and person has normal speech and language functions normal CT examination subtle left-sided hemiparesis still needing some assistance in the activities of daily living however significantly improved Extrem: General: normal to inspection Psych: Mental Status: mental status grossly normal Objective Data Vital Signs Vital Signs: Vital Signs - 24 hr 05/07/19 14:00 05/07/19 22:00 05/08/19 06:00 Temperature 36.6 C 36.8 C 36.2 C L Pulse Rate 74 71 76 Respiratory Rate 20 18 19 Blood Pressure 107/52 L 147/59 H 180/82 H Pulse Oximetry 98 96 94 05/08/19 08:58 Temperature Pulse Rate 80 Respiratory Rate Blood Pressure Pulse Oximetry Intake/Output Intake/Output: Intake & Output 03/22/20 03/23/20 03/24/20 03/25/20 23:59 23:59 23:59 23:59 Intake Total 1080 695 720 240 Balance 1080 285 720 240 Meds/Results Medications: Active Medications Generic Name Dose Route Start Last Admin Trade Name Freq PRN Reason Stop Dose Admin Aspirin 81 mg 05/02/19 09:00 05/08/19 08:57 Aspirin Chewable PO 81 mg DAILY CHARU Administration Atorvastatin Calcium 40 mg 05/02/19 09:00 05/08/19 08:57 Lipitor PO 40 mg DAILY [facility]U Administration Clopidogrel Bisulfate 75 mg 05/02/19 09:00 05/08/19 08:57 Plavix PO 75 mg DAILY [facility]U Administration Dextrose 12.5 gm 05/01/19 18:47 Dextrose 50% Syringe IV PUSH PRN PRN Hypoglycemia Protocol Ezetimibe 10 mg 05/02/19 09:00 05/08/19 08:57 Zetia PO 10 mg DAILY [facility]U Administration Finasteride 5 mg 05/02/19 09:00 05/08/19 08:57 Proscar PO 5 mg DAILY [facility]U Administration Glucagon 1 mg 05/01/19 18:47 Glucagon For Inj IM PRN PRN Hypoglycemia Protocol Glucose 15 gm 05/01/19 18:47 Glutose 15 PO PRN PRN Hypoglycemia Protocol Dextrose 1,000 mls @ 100 mls/hr 05/01/19 18:47 Dextrose 5% 1,000 Ml IVPB PRN PRN Hypoglycemia Protocol Indapamide 2.5 mg 05/02/19 09:00 05/08/19 08:57 Lozol PO 2.5 mg DAILY [facility]U Administration Insulin Glargine 70 units 05/02/19 21:00 05/07/19 20:26 Lantus SUB-Q 70 units HS CHARU Administration Losartan Potassium 50 mg 05/02/19 09:00 05/08/19 08:58 Cozaar PO 50 mg DAILY [facility]U Administration Metformin HCl 1,000 mg 05/02/19 21:00 05/08/19 08:58 G
[2019-05-08 14:00] VITALS: BP 105/49; PULSE 74; RESP 20; TEMP 36.7; O2SAT 96
[2019-05-08] MEDS: TOLNAFTATE 1% POWDER 45 GM BTL 1 APPLIC TOPICAL ×2 (17:28→20:42)
[2019-05-08 19:39] LABS: Glucose Point of Care 177 (65-105)
[2019-05-08] MEDS: INSULIN GLARGINE (*BKC) 100 UNITS/ML 70 UNITS SUB-Q (20:36)
[2019-05-08 20:57] LABS: Glucose Point of Care 171 (65-105)
[2019-05-08 21:39] VITALS: BP 140/64; PULSE 72; RESP 20; TEMP 36.6; O2SAT 99
[2019-05-09 04:47] LABS: Basophils Percent Auto 0.4 % (0.2-1.2); Eosinophils Absolute Auto 0.2 K/mm3 (0-0.3); Eosinophils Percent Auto 2.3 % (0-4.4); Hemoglobin 11.6 g/dL (14.0-18.0); Immature Granulocyte Absolute 0.06 K/mm3 (0.00-0.031); Immature Granulocyte Percent A 0.6 % (0-0.5); Lymphocytes Absolute Auto 1.86 K/mm3 (0.9-3.2); Lymphocytes Percent Auto 19.6 % (18.3-44.2); Mean Corpuscular HGB Conc 30.5 g/dl (32-36); Mean Corpuscular Hemoglobin 25.9 pg (26-34); Mean Corpuscular Volume 84.8 fl (80-100); Mean Platelet Volume 11.5 fl (7.4-10.4); Neutrophils Absolute Auto 6.4 K/mm3 (1.3-6.7); Neutrophils Percent Auto 67.1 % (45.5-73.1); Platelet Count Result 231 k/mm3 (150-375); Red Blood Count 4.48 M/mm3 (4.6-6.20); White Blood Count 9.5 K/mm3 (4.5-10.0)
[2019-05-09 05:01] LABS: Blood Urea Nitrogen 36 mg/dL (9-20); Calcium 8.5 mg/dL (8.4-10.2); Carbon Dioxide 28 mmol/L (22-30); Chloride 102 mmol/L (98-107); Estimated CRCL calculation 54 ml/min; Estimated Glomerular Filt Rate 49; Glucose 87 mg/dL (75-110); Potassium 3.7 mmol/L (3.4-5.0); Sodium 138 mmol/L (137-145)
[2019-05-09 06:00] VITALS: BP 157/70; PULSE 64; RESP 20; TEMP 36.6; O2SAT 96
[2019-05-09 07:13] LABS: Glucose Point of Care 59 (65-105)
[2019-05-09] MEDS: ATORVASTATIN 40 MG TABLET PO (09:31)
[2019-05-09] MEDS: EZETIMIBE 10 MG TABLET PO (09:31)
[2019-05-09] MEDS: FINASTERIDE 5 MG TABLET PO (09:31)
[2019-05-09] MEDS: ASPIRIN 81 MG CHEWABLE TABLET PO (09:31)
[2019-05-09] MEDS: CLOPIDOGREL BISULFATE 75 MG TABLET PO (09:31)
[2019-05-09 09:32] VITALS: PULSE 64
[2019-05-09] MEDS: LOSARTAN POTASSIUM 50 MG TABLET PO (09:32)
[2019-05-09] MEDS: metFORMIN HCL 500 MG TABLET 1000 MG PO ×2 (09:32→20:36)
[2019-05-09] MEDS: METOPROLOL SUCCINATE EXT REL 50 MG TABCR PO (09:32)
[2019-05-09] MEDS: INDAPAMIDE 2.5 MG TABLET PO (09:32)
[2019-05-09] MEDS: TAMSULOSIN HCL 0.4 MG CAPSULE PO (09:33)
[2019-05-09] MEDS: TOLNAFTATE 1% POWDER 45 GM BTL 1 APPLIC TOPICAL ×2 (09:33→20:37)
[2019-05-09] MEDS: polyethylene glycoL 3350 17 GM POWD.PACK PO (09:33)
--- NOTE | 2019-05-09 11:13 | WPDNEURORHBP ---
Subjective Date/time seen: 05/09/19 11:13 Interval history: this 74-year-old diabetic Emily is here after having had a stroke which has left him with left-sided hemiparesis from which he has significantly improved and looking forward to go home in the next couple of days however is sugars in the morning the relatively low and we need to adjust his Lantus at night otherwise he is asymptomatic without any sweating nausea vomiting headache chest pain shortness of breath fever chills or sore throat Review of Systems Review of Systems: All systems reviewed & are unremarkable except as noted in HPI and below Functional Status Ambulation Ability Ability to Ambulate 10 Feet: Independent Ability to Ambulate 50 Feet With 2 Turns: Independent Ability to Ambulate 150 Feet: Independent Ambulation Assistive Devices: Cane Transfers Ability Ability to Transfer In/Out of Chair: Independent Exam Const: General: comfortable and no acute distress HENMT: General nose exam: Normal nares present Mouth: Yes moist mucous membranes Eyes: General: appearance normal, both eyes and all related structures Neck: Neck: supple and no JVD Resp: Effort & Inspection: normal respiratory effort Auscultation: clear to auscultation bilaterally Cardio: Rate: regular rate Rhythm: regular rhythm GI: GI Palp: Yes Soft to palpation Auscultation: normal bowel sounds Skin: General skin exam: normal color and no rashes or lesions noted Neuro: Other: patient is awake alert will oriented times place per son has normal speech and language functions normal cranial nerve examination and significantly improved left-sided hemiparesis engage in therapy quite well and happy with the care Extrem: General: normal to inspection Psych: Mental Status: mental status grossly normal Objective Data Vital Signs Vital Signs: Vital Signs - 24 hr 05/08/19 14:00 05/08/19 21:39 05/09/19 06:00 Temperature 36.7 C 36.6 C 36.6 C Pulse Rate 74 72 64 Respiratory Rate 20 20 20 Blood Pressure 105/49 L 140/64 157/70 H Pulse Oximetry 96 99 96 05/09/19 09:32 Temperature Pulse Rate 64 Respiratory Rate Blood Pressure Pulse Oximetry Intake/Output Intake/Output: Intake & Output 05/06/19 05/07/19 05/08/19 05/09/19 23:59 23:59 23:59 23:59 Intake Total 480 720 840 240 Balance 480 720 840 240 Meds/Results Medications: Active Medications Generic Name Dose Route Start Last Admin Trade Name Freq PRN Reason Stop Dose Admin Aspirin 81 mg 05/02/19 09:00 05/09/19 09:31 Aspirin Chewable PO 81 mg DAILY CHARU Administration Atorvastatin Calcium 40 mg 05/02/19 09:00 05/09/19 09:31 Lipitor PO 40 mg DAILY CHARU Administration Clopidogrel Bisulfate 75 mg 05/02/19 09:00 05/09/19 09:31 Plavix PO 75 mg DAILY [facility]U Administration Dextrose 12.5 gm 05/01/19 18:47 Dextrose 50% Syringe IV PUSH PRN PRN Hypoglycemia Protocol Ezetimibe 10 mg 05/02/19 09:00 05/09/19 09:31 Zetia PO 10 mg DAILY [facility] Administration Finasteride 5 mg 05/02/19 09:00 05/09/19 09:31 Proscar PO 5 mg DAILY CHARU Administration Glucagon 1 mg 05/01/19 18:47 Glucagon For Inj IM PRN PRN Hypoglycemia Protocol Glucose 15 gm 05/01/19 18:47 Glutose 15 PO PRN PRN Hypoglycemia Protocol Dextrose 1,000 mls @ 100 mls/hr 05/01/19 18:47 Dextrose 5% 1,000 Ml IVPB PRN PRN Hypoglycemia Protocol Indapamide 2.5 mg 05/02/19 09:00 05/09/19 09:32 Lozol PO 2.5 mg DAILY [facility] Administration Insulin Glargine 60 units 05/09/19 21:00 Lantus SUB-Q HS [facility] Losartan Potassium 50 mg 05/02/19 09:00 05/09/19 09:32 Cozaar PO 50 mg DAILY [facility] Administration Metformin HCl 1,000 mg 05/02/19 21:00 05/09/19 09:32 Glucophage PO 1,000 mg Q12HR [facility] Administration Metoprolol Succinate 50 mg 05/02/19 09:00 05/09/19 09:32 Toprol Xl PO 50 mg DAILY [facility] A
[2019-05-09 11:59] LABS: Glucose Point of Care 104 (65-105)
--- NOTE | 2019-05-09 12:09 | PCNFU ---
Nutrition Follow-Up Complete: Decreased saturated fat/cholesterol needs related to cardiovascular disease as evidenced by CVA, hx HTN and high cholesterol. Patient to consume 75% of meals or greater. Goal: Goal met, continue with same goal. Pt current nutrition DBCC. Nutrition recommendation: Continue with current recommendations. Last recorded weight is 115.5 kg. Bowel Motility: Labs Reviewed:BUN 36, BG 177 to 59. Meds Noted:lantus, glucophage, miralax Additional Notes: Pt with adequate intake, eating 100% of all meals. Pt experienced low BG of 59. MD adjusting lantus, will d/c home in a few days. Follow up in 7 days.
[2019-05-09 13:57] LABS: Glucose Point of Care 148 (65-105)
[2019-05-09 14:00] VITALS: BP 120/56; PULSE 69; RESP 18; TEMP 36.7; O2SAT 98
[2019-05-09] MEDS: INSULIN GLARGINE (*BKC) 100 UNITS/ML 60 UNITS SUB-Q (20:36)
[2019-05-09 20:47] LABS: Glucose Point of Care 203 (65-105)
[2019-05-09 22:00] VITALS: BP 139/60; PULSE 72; RESP 18; TEMP 36.7; O2SAT 92
[2019-05-10 05:44] VITALS: BP 146/57; PULSE 67; RESP 20; TEMP 37.1; O2SAT 97
[2019-05-10 06:45] LABS: Glucose Point of Care 46 (65-105)
[2019-05-10] MEDS: FINASTERIDE 5 MG TABLET PO (08:56)
[2019-05-10] MEDS: LOSARTAN POTASSIUM 50 MG TABLET PO (08:56)
[2019-05-10] MEDS: EZETIMIBE 10 MG TABLET PO (08:56)
[2019-05-10] MEDS: ATORVASTATIN 40 MG TABLET PO (08:56)
[2019-05-10] MEDS: CLOPIDOGREL BISULFATE 75 MG TABLET PO (08:56)
[2019-05-10] MEDS: INDAPAMIDE 2.5 MG TABLET PO (08:56)
[2019-05-10] MEDS: ASPIRIN 81 MG CHEWABLE TABLET PO (08:56)
[2019-05-10 08:57] VITALS: PULSE 67
[2019-05-10] MEDS: METOPROLOL SUCCINATE EXT REL 50 MG TABCR PO (08:57)
[2019-05-10] MEDS: metFORMIN HCL 500 MG TABLET 1000 MG PO ×2 (08:57→20:15)
[2019-05-10] MEDS: TAMSULOSIN HCL 0.4 MG CAPSULE PO (08:57)
[2019-05-10] MEDS: polyethylene glycoL 3350 17 GM POWD.PACK PO (08:57)
[2019-05-10 12:00] LABS: Glucose Point of Care 117 (65-105)
--- NOTE | 2019-05-10 13:32 | WPDNEURORHBP ---
Subjective Date/time seen: 05/10/19 13:32 Interval history: This 74-year-old diabetic gentleman has recuperate it here after having and stroke with left hemiparesis has done remarkably well and will be going home tomorrow he denies any headache nausea vomiting chest pain shortness of breath fever chills or sore throat Review of Systems Review of Systems: All systems reviewed & are unremarkable except as noted in HPI and below Functional Status Ambulation Ability Ability to Ambulate 10 Feet: Independent Ability to Ambulate 50 Feet With 2 Turns: Independent Ability to Ambulate 150 Feet: Independent Ambulation Assistive Devices: Cane Transfers Ability Ability to Transfer In/Out of Chair: Independent Exam Const: General: comfortable and no acute distress HENMT: General nose exam: Normal nares present Mouth: Yes moist mucous membranes Eyes: General: appearance normal, both eyes and all related structures Neck: Neck: supple and no JVD Resp: Effort & Inspection: normal respiratory effort Auscultation: clear to auscultation bilaterally Cardio: Rate: regular rate Rhythm: regular rhythm GI: GI Palp: Yes Soft to palpation Auscultation: normal bowel sounds Skin: General skin exam: normal color and no rashes or lesions noted Neuro: Other: patient is awake alert of L1 to time place person is speech and language functions are normal cranial examination is normal left-sided hemiparesis has significantly improved and is ready to be discharged tomorrow Extrem: General: normal to inspection Psych: Mental Status: mental status grossly normal Objective Data Vital Signs Vital Signs: Vital Signs - 24 hr 05/09/19 14:00 05/09/19 22:00 05/10/19 05:44 Temperature 36.7 C 36.7 C 37.1 C Pulse Rate 69 72 67 Respiratory Rate 18 18 20 Blood Pressure 120/56 L 139/60 146/57 H Pulse Oximetry 98 92 97 05/10/19 08:57 Temperature Pulse Rate 67 Respiratory Rate Blood Pressure Pulse Oximetry Intake/Output Intake/Output: Intake & Output 05/07/19 05/08/19 05/09/19 05/10/19 23:59 23:59 23:59 23:59 Intake Total 720 840 720 480 Balance 720 840 720 480 Meds/Results Medications: Active Medications Generic Name Dose Route Start Last Admin Trade Name Freq PRN Reason Stop Dose Admin Aspirin 81 mg 05/02/19 09:00 05/10/19 08:56 Aspirin Chewable PO 81 mg DAILY [facility]U Administration Atorvastatin Calcium 40 mg 05/02/19 09:00 05/10/19 08:56 Lipitor PO 40 mg DAILY [facility] Administration Clopidogrel Bisulfate 75 mg 05/02/19 09:00 05/10/19 08:56 Plavix PO 75 mg DAILY [facility] Administration Dextrose 12.5 gm 05/01/19 18:47 Dextrose 50% Syringe IV PUSH PRN PRN Hypoglycemia Protocol Ezetimibe 10 mg 05/02/19 09:00 05/10/19 08:56 Zetia PO 10 mg DAILY [facility] Administration Finasteride 5 mg 05/02/19 09:00 05/10/19 08:56 Proscar PO 5 mg DAILY [facility] Administration Glucagon 1 mg 05/01/19 18:47 Glucagon For Inj IM PRN PRN Hypoglycemia Protocol Glucose 15 gm 05/01/19 18:47 Glutose 15 PO PRN PRN Hypoglycemia Protocol Dextrose 1,000 mls @ 100 mls/hr 05/01/19 18:47 Dextrose 5% 1,000 Ml IVPB PRN PRN Hypoglycemia Protocol Indapamide 2.5 mg 05/02/19 09:00 05/10/19 08:56 Lozol PO 2.5 mg DAILY [facility] Administration Insulin Glargine 60 units 05/09/19 21:00 05/09/19 20:36 Lantus SUB-Q 60 units HS [facility]U Administration Losartan Potassium 50 mg 05/02/19 09:00 05/10/19 08:56 Cozaar PO 50 mg DAILY [facility] Administration Metformin HCl 1,000 mg 05/02/19 21:00 05/10/19 08:57 Glucophage PO 1,000 mg Q12HR [facility] Administration Metoprolol Succinate 50 mg 05/02/19 09:00 05/10/19 08:57 Toprol Xl PO 50 mg DAILY [facility]U Administration Polyethylene Glycol 17 gm 05/05/19 09:00 05/10/19 08:57 Miralax PO 17 gm QAM [facility]U Administration Tamsulosin HCl 0.4 mg 05/02/19 09:00 0
[2019-05-10] MEDS: TOLNAFTATE 1% POWDER 45 GM BTL 1 APPLIC TOPICAL ×2 (13:34→20:15)
[2019-05-10 14:00] VITALS: BP 148/62; PULSE 72; RESP 18; TEMP 36.2; O2SAT 96
[2019-05-10] MEDS: INSULIN GLARGINE (*BKC) 100 UNITS/ML 60 UNITS SUB-Q (20:15)
[2019-05-10 20:24] LABS: Glucose Point of Care 243 (65-105)
[2019-05-10 21:18] VITALS: PULSE 72; RESP 18; O2SAT 96
[2019-05-10 22:00] VITALS: BP 134/78; PULSE 66; RESP 18; TEMP 36.6; O2SAT 100
[2019-05-11 06:00] VITALS: BP 123/58; PULSE 77; RESP 18; TEMP 36.4; O2SAT 97
[2019-05-11 07:00] LABS: Glucose Point of Care 94 (65-105)
[2019-05-11 07:00] LABS: Glucose Point of Care 49 (65-105)
[2019-05-11] MEDS: ASPIRIN 81 MG CHEWABLE TABLET PO (08:27)
[2019-05-11] MEDS: ATORVASTATIN 40 MG TABLET PO (08:27)
[2019-05-11] MEDS: CLOPIDOGREL BISULFATE 75 MG TABLET PO (08:27)
[2019-05-11 08:28] VITALS: PULSE 77
[2019-05-11] MEDS: metFORMIN HCL 500 MG TABLET 1000 MG PO (08:28)
[2019-05-11] MEDS: METOPROLOL SUCCINATE EXT REL 50 MG TABCR PO (08:28)
[2019-05-11] MEDS: EZETIMIBE 10 MG TABLET PO (08:28)
[2019-05-11] MEDS: INDAPAMIDE 2.5 MG TABLET PO (08:28)
[2019-05-11] MEDS: LOSARTAN POTASSIUM 50 MG TABLET PO (08:28)
[2019-05-11] MEDS: FINASTERIDE 5 MG TABLET PO (08:28)
[2019-05-11] MEDS: polyethylene glycoL 3350 17 GM POWD.PACK PO (08:29)
[2019-05-11] MEDS: TAMSULOSIN HCL 0.4 MG CAPSULE PO (08:29)
[2019-05-11] MEDS: TOLNAFTATE 1% POWDER 45 GM BTL 1 APPLIC TOPICAL (08:29)
--- NOTE | 2019-05-16 11:10 | PM.DS ---
DS: Diagnosis Admitting Diagnosis Admitting Diagnosis: Cerebral infarction due to unspecified occlusion or stenosis of unspecified cerebral artery Discharge Diagnosis (1) Cerebral arteriosclerosis with history of previous stroke: Code(s): I67.2 - Cerebral atherosclerosis; Z86.73 - Personal history of transient ischemic attack (TIA), and cerebral infarction without residual deficits Status: Acute (2) Hyperlipidemia: Code(s): E78.5 - Hyperlipidemia, unspecified Status: Acute (3) Hypertension: Code(s): I10 - Essential (primary) hypertension Status: Acute (4) H/O aortic valve replacement: Code(s): Z95.2 - Presence of prosthetic heart valve Status: Acute (5) Aortic stenosis: Code(s): I35.0 - Nonrheumatic aortic (valve) stenosis Status: Acute (6) Pacemaker: Code(s): Z95.0 - Presence of cardiac pacemaker Status: Acute (7) Coronary artery disease: Code(s): I25.10 - Atherosclerotic heart disease of [place] coronary artery without angina pectoris Status: Acute (8) Diabetes mellitus with neuropathy: Code(s): E11.40 - Type 2 diabetes mellitus with diabetic neuropathy, unspecified Status: Acute (9) Left hemiparesis: Code(s): G81.94 - Hemiplegia, unspecified affecting left nondominant side Status: Acute (10) Stroke: Code(s): I63.9 - Cerebral infarction, unspecified Status: Acute DS: Summary Hospital Course Reason for hospitalization: this 74-year-old right-handed white male was admitted with the rehab diagnosis of left-sided hemiparesis secondary to the right hemispheric stroke as detailed in my history and physical examination he does have a previous history of having a stroke many years ago and has multiple comorbidities mentioned as in the brief problem list above the patient received the physical therapy of compression therapy and gait training and the treatment for the underlying medical issues and was discharge in the much better condition Hospital Course: the patient was able to achieved the following independent measures Eating independent overlie Charito setup toileting setup bathing independent upper body dressing set up lower body dressing set up foot where a set up rolling in bed independent sitting to lying independent lying to sitting and the plan and sit to stand independent chair transfers independent 12 a transverse independent car transfers independent walking 10 feet independent walking 50 feet with 2 turns independent walking 150 feet independent walking 10 feet uneven surfaces independent [place] step independent 4 steps independent 12 step set up 12 steps independent making about object independent wheelchair 50 feet not applicable wheelchair and 50 feet not ability girl patient was sent home with home health no falls were recorded Time Spent with Patient Time attestation: Total time spent providing and/or coordinating discharge services: Exam Const: General: comfortable and no acute distress HENMT: General nose exam: Normal nares present Mouth: Yes moist mucous membranes Eyes: General: appearance normal, both eyes and all related structures Neck: Neck: supple and no JVD Resp: Effort & Inspection: normal respiratory effort Auscultation: clear to auscultation bilaterally Cardio: Other: cardiac murmurs remained stable GI: GI Palp: Yes Soft to palpation Auscultation: normal bowel sounds Skin: General skin exam: normal color and no rashes or lesions noted Neuro: Other: patient was awake and alert well oriented in time place and person with much improved left-sided hemiparesis and happy with the care he received Extrem: General: normal to inspection Psych: Mental Status: mental status grossly normal DS: Data Data Completed and Pending Completed studies during hospitalization: the lab work performed on May 02 August 05, 2019 prior to discharge showed white count of 9500 hemoglobin of 11.6
== END 2019-05-11 11:00 | disposition home health service (06) | DRG 57 ==
PROVIDERS: Admitting Provider Psychiatry & Neurology Neurology; Visit Provider Psychiatry & Neurology Neurology
DX: I69.354 Hemiplegia and hemiparesis following cerebral infarction affecting left non-dominant side (principal); I69.322 Dysarthria following cerebral infarction; I69.392 Facial weakness following cerebral infarction; D64.9 Anemia, unspecified; E11.42 Type 2 diabetes mellitus with diabetic polyneuropathy; E11.65 Type 2 diabetes mellitus with hyperglycemia; E78.5 Hyperlipidemia, unspecified; I35.0 Nonrheumatic aortic (valve) stenosis; I67.2 Cerebral atherosclerosis; I16.0 Hypertensive urgency; I25.10 Atherosclerotic heart disease of native coronary artery without angina pectoris; I10 Essential (primary) hypertension; Z79.02 Long term (current) use of antithrombotics/antiplatelets; Z95.810 Presence of automatic (implantable) cardiac defibrillator; Z79.4 Long term (current) use of insulin; Z95.2 Presence of prosthetic heart valve; Z87.891 Personal history of nicotine dependence
CPT/HCPCS: 36415; 80048; 80061; 83036; 85025; 87081; 97110; 97112; 97116; 97161; 97165; 97530; 97535; A9270; J1815